=== PATIENT | female | born 1955 | race Caucasian/White ===

== ENCOUNTER 2018-08-26 14:29 | Emergency (ER) | payer SELFPAY ==
--- NOTE | 2018-08-26 16:50 | RAD REPORT ---
EXAM DESCRIPTION: RAD - Knee Right 3 View - 08/26/2018 4:21 pm CLINICAL HISTORY: Trip and fall, bilateral knee and wrist pain COMPARISON: None. FINDINGS: No fracture, dislocation or periosteal reaction.No joint effusion seen. No joint space denise rowing. Mild spurring changes are present along the tibial spine. No foreign body or other soft tissue suspicious finding. IMPRESSION: Negative right knee. Clinical concerns for internal derangement or occult bony injury could be further assessed with MR im aging.
--- NOTE | 2018-08-26 16:50 | RAD REPORT ---
EXAM DESCRIPTION: RAD - Knee Left 3 View - 08/26/2018 4:21 pm CLINICAL HISTORY: Trip and fall, bilateral knee and wrist pain COMPARISON: None. FINDINGS: No fracture, dislocation or periosteal reaction.No joint effusion seen. No joint space denise rowing. Minimal marginal spurring changes present. No soft tissue abnormality identified. No foreign body. IMPRESSION: Negative left knee. Clinical concerns for internal derangement or occult bony injury could be further assessed with MR im aging.
--- NOTE | 2018-08-26 16:53 | RAD REPORT ---
EXAM DESCRIPTION: RAD - Wrist Right 3 View - 08/26/2018 4:21 pm CLINICAL HISTORY: Trip and fall, bilateral knee and wrist pain COMPARISON: None. FINDINGS: No fracture is identified. There is no dislocation or periosteal reaction noted. Patient h as advanced degenerative change at the trapezium first metacarpal articulation. Joint space is narrow ed with sclerosis and prominent spurring. There is some deformity along the articular surface of the trapezium. Scaphoid trapezial and degenerative changes minimal. No foreign body or other soft tissue abnormality. IMPRESSION: No fracture or acute finding seen in the right wrist. Advanced degenerative change at the trapezium first metacarpal articulation.
--- NOTE | 2018-08-26 16:54 | RAD REPORT ---
EXAM DESCRIPTION: RAD - Wrist Left 3 View - 08/26/2018 4:23 pm CLINICAL HISTORY: Trip and fall, bilateral knee and wrist pain COMPARISON: None. FINDINGS: No fracture is identified. There is no dislocation or periosteal reaction noted. Patient h as very advanced degenerative change at the trapezium first metacarpal articulation. There is joint s pace narrowing, sclerosis and prominent bony hypertrophy and spurring. There is partial subluxation o f the metacarpal. A mild to moderate degenerative change involves the scaphoid articulation with the trapezium and trapezoid bones. No foreign body or suspicious soft tissue finding. IMPRESSION: No left wrist fracture or acute finding. Advanced degenerative change at the trapezium first metacarpal articulation.
--- NOTE | 2018-08-26 17:35 | RAD REPORT ---
EXAM DESCRIPTION: CT - Head C Spine Cap Wo Con - 08/26/2018 5:23 pm CLINICAL HISTORY: Fall, head, neck, chest and abdomen pain COMPARISON: None. TECHNIQUE: Axial [address] head images were obtained. Axial [address] cervical spine images were obtain ed with sagittal and coronal reconstruction images reviewed. Axial 5 mm images of the chest, abdomen and pelvis were obtained. All CT scans are performed using dose optimization technique as appropriate and may include automated exposure control or mA/KV adjustment according to patient size. FINDINGS: No intracranial hemorrhage, mass or edema. No midline shift. Mild atrophy and chronic isch emic changes are present. Ventricles are in proportion to any volume loss. The patient has an approxi mately 4 centimeter CSF collection in the midline and left-side posterior fossa. This is probably a n onacute arachnoid cyst rather than asymmetric stephen cisterna magna Mastoid air cells and paranasal sin uses are clear. No skull fracture. Cervical bodies are normal in height and alignment. No fracture or acute bone finding.C5-6 disc space narrowing seen with associated bony foraminal encroachment. Multilevel mild facet joint degenerative change present.No prevertebral soft tissue thickening or paraspinal mass.Central canal detail is inh erently limited on CT imaging. CT chest shows no pneumothorax, pulmonary contusion or pleural fluid collection. No mediastinal hem atoma and the aorta and pulmonary arteries are unremarkable. No chest will mass or abnormal axillary finding. No displaced rib fracture or other significant bony finding. CT abdomen and pelvis show no injury to solid abdominal viscera. Gallbladder and biliary tree are unr emarkable. No bowel injury or significant finding. No free air, free fluid or abnormal stranding. No hernia, mass or bulky lymphadenopathy. No urinary bladder abnormality. No significant bony finding. No acute compression fractures in the spine. There is degenerative disc disease throughout the lower thoracic spine as well as the L4-5 and L5-S1 levels. There is anterior s ubluxation of L4 secondary to advanced facet joint degenerative change. IMPRESSION: No hemorrhage or acute CT Head finding. Cervical spine degenerative change as detailed. No acute finding. No acute CT chest finding. No acute CT abdomen and pelvis finding. Nonacute findings detailed in the body of the report.
--- NOTE | 2018-08-26 17:59 | ER ---
Nurse's Notes [facility] Name: Miya Winchester Age: 63 yrs Sex: Female : 1955 Arrival Date: 08/26/2018 Time: 14:32 Bed 12 Private MD: Diagnosis: Other slipping, tripping and stumbling and falls;Pain in unspecified wrist-Bilateral from fall;Pain in unspecified hand-Bilateral from fall;Pain in knee-Bilateral from fall;Neck and back pain from fall Presentation: 08/26 14:38 Presenting complaint: Patient states: was at [employer] shopping and stepped on something hj and fell and hurt both knees, both wrist, denies hitting head and LOC;. Transition of care: patient was not received from another setting of care. Onset of symptoms was August 26, 2018. Risk Assessment: Do you want to hurt yourself or someone else? Patient reports no desire to harm self or others. Initial Sepsis Screen: Does the patient meet any 2 criteria? No. Patient's initial sepsis screen is negative. Does the patient have a suspected source of infection? No. Patient's initial sepsis screen is negative. Care prior to arrival: None. 14:38 Method Of Arrival: Ambulatory 14:38 Acuity: SERGE 4 14:41 Mechanism of Injury: Fall. Trauma event details: Injury occurred in the county [facility], Injury occurred: at home. Injury occurred: August 26, 2018. Triage Assessment: 14:40 General: Appears in no apparent distress. uncomfortable, Behavior is calm, cooperative, hj appropriate for age. Pain: Complains of pain in knee, wrists. Historical: - Allergies: 14:40 Codeine; - Home Meds: 14:40 tramadol 50 mg Oral tab 1 tab every 4 hours [Active]; - PMHx: 14:40 Degenerative disc disease; - PSHx: 14:40 ; oophorectomy; Appendectomy; - Immunization history:: Adult Immunizations up to date. - Social history:: Smoking status: Patient/guardian denies using tobacco, Patient/guardian denies using alcohol. - Ebola Screening: : Patient negative for fever greater than or equal to 101.5 degrees Fahrenheit, and additional compatible Ebola Virus Disease symptoms Patient denies exposure to infectious person Patient denies travel to an Ebola-affected area in the 21 days before illness onset. Screenin:41 Abuse screen: Denies threats or abuse. Denies injuries from another. Nutritional hj screening: No deficits noted. Tuberculosis screening: No symptoms or risk factors identified. Fall Risk Fall in past 12 months (25 points). Primary Survey: 14:43 NO uncontrolled hemorrhage observed. A: Airway: patent, No supplemental oxygen in use hj on arrival. Oral cavity: clear, gag reflex present, Trachea midline. Breathing/Chest: Respiratory pattern: regular, Respiratory effort: spontaneous, unlabored, Breath sounds: clear, Chest inspection: symmetrical rise and fall of the chest. Circulation: Cardiac rhythm: Heart tones present. Pulses: palpable right radial artery and left radial artery. Skin color: Skin temperature: warm, dry. Disability Alert. Assessment: 17:30 General: Appears in no apparent distress. comfortable, Behavior is calm, cooperative. iw Pain: Complains of pain in back, right arm, left arm and neck. Neuro: Level of Consciousness is awake, alert, obeys commands, Moves all extremities. Cardiovascular: Patient's skin is warm and dry. Respiratory: Respiratory effort is even, unlabored. Derm: Skin is intact, is healthy with good turgor. Musculoskeletal: Range of motion: intact in all extremities. Vital Signs: 14:41 BP 132 / 77; Pulse 84; Resp 18; Temp 99.5(O); Pulse Ox 99% on R/A; Weight 65.32 kg; hj Height 5 ft. 9 in. (175.26 cm); Pain 9/10; 14:41 Body Mass Index 21.27 (65.32 kg, 175.26 cm) ED Course: 14:32 Patient arrived in ED. mr 14:39 Triage completed. hj 14:41 Arm band placed on right wrist. hj 15:26 Davie Arroyo PA is PHCP. cp 15:26 Jeff Childs MD is Attending Physician. cp 15:54 Zeynep Gomez, FLORINDA is Primary Nurse. iw 16:21 XRAY Knee RIGHT 3 view In Process Unspecified. EDMS 16:21 XRAY Knee LEFT 3 view In Process Unspecified. EDMS 16:21 XRAY Wrist LEFT 3 view In Process Unspecified. EDMS 16:21 XRAY Wrist RIGHT 3 view In Process Unspecified. EDMS 17:[address] jg6 17:20 CT completed. Patient tolerated procedure well. Patient moved back from CT. nj 17:24 CT Traumagram (Head C Spine CAP wo con) In Process Unspecified. EDMS 17:30 Patient has correct armband on for positive identification. iw 18:20 No provider procedures requiring assistance completed. Patient did not have IV access iw during this emergency room visit. Administered Medications: 17:14 Not Given (Patient Refused): Ibuprofen 800 mg PO once iw Outcome: 17:58 Discharge ordered by MD. cp 18:20 Discharged to home ambulatory. iw 18:20 Condition: good 18:20 Discharge instructions given to patient, Instructed on discharge instructions, follow up and referral plans. medication usage, Demonstrated understanding of instructions, follow-up care, medications, Prescriptions given X 3. 18:21 Patient left the ED. iw Signatures: Dispatcher [employer] EDDC Vesna Mcintosh Zeynep Gomez, RN RN Darrel Saleh RN RN hj Page, Corey, PA PA cp Jordan, Nathan nj Garcia, Kaur jg6 Corrections: (The following items were deleted from the chart) 14:44 14:41 Pulse 84bpm; Resp 18bpm; Pulse Ox 99% RA; Temp 99.5F Oral; 65.32 kg; Height 5 ft. hj 9 in.; BMI: 21.2; Pain 9/10; hj
--- NOTE | 2018-08-26 17:59 | EDPHYS ---
Physician Documentation [facility] Name: Miya Winchester Age: 63 yrs Sex: Female : 1955 Arrival Date: 08/26/2018 Time: 14:32 Bed 12 Private MD: ED Physician Jeff Childs HPI: 08/26 15:46 This 63 yrs old Female presents to ER via Ambulatory with complaints of Fall cp Injury. 15:46 Details of fall: The patient fell from an upright position, while walking. Onset: The cp symptoms/episode began/occurred today. Associated injuries: The patient sustained bilateral wrist and bilateral proximal hand and bilateral knee. 15:46 Patient reports she was at [employer] shopping when she slipped on object on floor. Patient cp reports she fell forward onto outstretched hands and knees. Patient denies hitting head, denies LOC. Patient reports she was able to walk to car after fall. Historical: - Allergies: 14:40 Codeine; hj - Home Meds: 14:40 tramadol 50 mg Oral tab 1 tab every 4 hours [Active]; hj - PMHx: 14:40 Degenerative disc disease; hj - PSHx: 14:40 ; oophorectomy; Appendectomy; hj - Immunization history:: Adult Immunizations up to date. - Social history:: Smoking status: Patient/guardian denies using tobacco, Patient/guardian denies using alcohol. - Ebola Screening: : Patient negative for fever greater than or equal to 101.5 degrees Fahrenheit, and additional compatible Ebola Virus Disease symptoms Patient denies exposure to infectious person Patient denies travel to an Ebola-affected area in the 21 days before illness onset. ROS: 16:00 Constitutional: Negative for body aches, chills, fever, poor PO intake. cp 16:00 Eyes: Negative for injury, pain, redness, and discharge. cp 16:00 ENT: Negative for drainage from ear(s), ear pain, sore throat, difficulty swallowing, difficulty handling secretions. 16:00 Neck: Positive for pain with movement, tenderness, Negative for stiffness, swollen nodes. 16:00 Cardiovascular: Negative for chest pain, edema, palpitations. 16:00 Respiratory: Negative for cough, shortness of breath, wheezing. 16:00 Abdomen/GI: Negative for abdominal pain, nausea, vomiting, and diarrhea, constipation, anorexia, black/tarry stool, rectal bleeding. 16:00 Back: Positive for pain at rest, pain with movement, Negative for decreased range of motion. 16:00 : Negative for urinary symptoms, difficulty urinating, bladder incontinence. 16:00 MS/extremity: Positive for pain, tenderness, of the proximal bilateral hand and bilateral wrist and bilateral knee, Negative for decreased range of motion, paresthesias. 16:00 Skin: Negative for cellulitis, rash. 16:00 Neuro: Negative for altered mental status, headache, loss of consciousness, syncope, weakness. 16:00 All other systems are negative. Exam: 16:15 Constitutional: The patient appears in no acute distress, alert, awake, cp non-diaphoretic, non-toxic, well developed, well nourished. 16:15 Head/Face: Normocephalic, atraumatic. cp 16:15 Eyes: Periorbital structures: appear normal, Conjunctiva: normal, no exudate, no injection, Sclera: no appreciated abnormality, Lids and lashes: appear normal, bilaterally. 16:15 ENT: External ear(s): are unremarkable, Nose: is normal, Mouth: Lips: moist, Oral mucosa: moist, Posterior pharynx: is normal, airway is patent, no erythema, no exudate, Voice: is normal. 16:15 Neck: C-spine: C-collar placed in ED, vertebral tenderness, that is mild, crepitus, is not appreciated, ROM/movement: pain, that is mild, with flexion, limited range of motion, is not appreciated, nuchal rigidity, is not appreciated. 16:15 Chest/axilla: Inspection: normal, Palpation: is normal, no crepitus, no tenderness. 16:15 Cardiovascular: Rate: normal, Rhythm: regular. 16:15 Respiratory: the patient does not display signs of respiratory distress, Respirations: normal, no use of accessory muscles, no retractions, no splinting, no tachypnea, labored breathing, is not present, Breath sounds: are clear throughout, no decreased breath sounds, no stridor, no wheezing. 16:15 Abdomen/GI: Inspection: abdomen appears normal, Palpation: abdomen is soft and non-tender, in all quadrants. 16:15 Back: pain, that is mild, of the low back area, vertebral tenderness. 16:15 Musculoskeletal/extremity: Extremities: grossly normal except: noted in the proximal right hand and proximal left hand: tenderness, There is no evidence of decreased ROM, deformity, noted in the right wrist and left wrist: tenderness, no evidence of decreased ROM, deformity, swelling, noted in the right knee and left knee: pain, tenderness, no evidence of decreased ROM, deformity, ROM: intact in all extremities, full active range of motion, in all extremities, Circulation is intact in all extremities. Sensation intact. Weight bearing: able to fully bear weight, bilateral knee. 16:15 Skin: cellulitis, is not appreciated, no rash present. 16:15 Neuro: Orientation: to person, place \T\ time. Mentation: is normal, Cerebellar function: is grossly normal, Motor: moves all fours, strength is normal, Sensation: is normal, Gait: is steady. Vital Signs: 14:41 BP 132 / 77; Pulse 84; Resp 18; Temp 99.5(O); Pulse Ox 99% on R/A; Weight 65.32 kg; hj Height 5 ft. 9 in. (175.26 cm); Pain 9/10; 14:41 Body Mass Index 21.27 (65.32 kg, 175.26 cm) hj MDM: 15:26 Patient medically screened. cp 16:00 Differential diagnosis: abrasion, closed head injury, contusion, fracture, multiple cp trauma. 17:55 Data reviewed: vital signs, nurses notes, radiologic studies, CT scan, plain films. cp 17:55 Test interpretation: by ED physician or midlevel provider: plain radiologic studies. cp Counseling: I had a detailed discussion with the patient and/or guardian regarding: the historical points, exam findings, and any diagnostic results supporting the discharge/admit diagnosis, radiology results, the need for outpatient follow up, a family practitioner, to return to the emergency department if symptoms worsen or persist or if there are any questions or concerns that arise at home. Response to treatment: the patient's symptoms have mildly improved after treatment. ED course: VSS. Radiology studies negative for acute trauma. Will discharge to home for continued monitoring. 08/26 15:46 Order name: XRAY Knee RIGHT 3 view; Complete Time: 17:44 cp 08/26 15:46 Order name: XRAY Knee LEFT 3 view; Complete Time: 17:44 cp 08/26 15:46 Order name: XRAY Wrist LEFT 3 view; Complete Time: 17:44 cp 08/26 15:46 Order name: XRAY Wrist RIGHT 3 view; Complete Time: 17:44 cp 08/26 17:05 Order name: CT Traumagram (Head C Spine CAP wo con); Complete Time: 17:44 cp 08/26 17:05 Order name: C-Collar; Complete Time: 17:14 cp Administered Medications: 17:14 Not Given (Patient Refused): Ibuprofen 800 mg PO once iw Disposition: 08/27 09:36 Co-signature as Attending Physician, Jeff Childs MD I agree with the assessment and kdr plan of care. Disposition: 08/26/18 17:58 Discharged to Home. Impression: Other slipping, tripping and stumbling and falls, Pain in unspecified wrist - Bilateral from fall, Pain in unspecified hand - Bilateral from fall, Pain in knee - Bilateral from fall, Neck and back pain from fall. - Condition is Stable. - Discharge Instructions: Joint Pain, Back Pain, Adult, Musculoskeletal Pain, Wrist Pain, Wrist Splint, Back Exercises, [id number], Hand Exercises. - Prescriptions for Anaprox DS 550 mg Oral Tablet - take 1 tablet by ORAL route every 12 hours As needed; 20 tablet. Cyclobenzaprine 10 mg Oral Tablet - take 1 tablet by ORAL route every 8 hours As needed no driving while taking medication; 20 tablet. Tramadol 50 mg Oral Tablet - take 1 tablet by ORAL route every 8 hours as needed. no driving while taking medication; 20 tablet. - Medication Reconciliation Form, Thank You Letter, Antibiotic Education, Prescription Opioid Use form. - Follow up: Private Physician; When: 2 - 3 days; Reason: Recheck today's complaints. - Problem is new. - Symptoms have improved. Signatures: Dispatcher [employer] EDMS Jeff Childs MD MD [facility] Zeynep Gomez RN RN iw Joaquin, Henry, RN RN hj Page, Corey, PA PA cp Corrections: (The following items were deleted from the chart) 08/26 18:21 17:05 Splint - Wrist ordered. cp iw 18:21 17:58 08/26/2018 17:58 Discharged to Home. Impression: Other slipping, tripping and iw stumbling and falls; Pain in unspecified wrist - Bilateral from fall; Pain in unspecified hand - Bilateral from fall; Pain in knee - Bilateral from fall; Neck and back pain from fall. Condition is Stable. Forms are Medication Reconciliation Form, Thank You Letter, Antibiotic Education, Prescription Opioid Use. Follow up: Private Physician; When: 2 - 3 days; Reason: Recheck today's complaints. Problem is new. Symptoms have improved. cp
[2018-08-26 19:03] VITALS: BP 132/77; TEMP 99.5; O2SAT 99
== END 2018-08-26 18:21 | disposition home or self-care (01) ==
LOC: ER 14:29
DX: M25.532 Pain in left wrist (principal); M25.531 Pain in right wrist; M79.642 Pain in left hand; M79.641 Pain in right hand; M25.562 Pain in left knee; M25.561 Pain in right knee; M54.9 Dorsalgia, unspecified; W01.0XXA Fall on same level from slipping, tripping and stumbling without subsequent striking against object, initial encounter; Y93.01 Activity, walking, marching and hiking; Y92.9 Unspecified place or not applicable; Z88.5 Allergy status to narcotic agent
CPT/HCPCS: 70450; 71250; 72125

== ENCOUNTER 2024-06-29 18:04 | Emergency (ER) | payer OTHER, SELFPAY ==
--- OUTSIDE RECORDS SUMMARY | 2024-06-29 18:07 | XMS REPORT | Continuity of Care Document ---
Author Name Unknown Address [address] [facility] [address] [place] [address] [facility] Address [address] [facility] [address] [place] [address] Care Team Providers Care Cloud Software Engineer Name Role Phone PCP, PATIENT DOES NOT HAVE A Primary Care Physic camila Unavailable TRACEY BRAVO Attending Clinician Unavailable [email or web address]_Solo_S Attending Clinician UnavailTRACEY Saenz Attending Clinician Unavail able RADIOLOGY Attending Clinician Unavailable Radiology Attending Clinician Unavailable Rose NEELY, Marcela Snyder Attending Clinician UnavailKaur Presley Attending Clinician Unavailable Doctor Unassigned, Pearson Attending Clinician U yareli Nurse, Yomi [facility] Attending Clinician Unavailable [email or web address]_Kahernana_S Admitting Clinician TRACEY Henderson Admitting Clinician Unavailable Payers Payer Name Policy Type Policy Number Effective Date Expirati on Date Source [employer] MEDICARE ADVANTAGE [id number] 2022 00:00:00 Allergies, Adverse Reactions, Alerts Allergy Name Allergy Type Status Severity Reaction(s) Onset Date Inactive Date Treating Clinician Comments Source Pineda Mann ty to adverse reaction to drug Active 03-17 00:00: 00 NO KNOWN ALLERGIE S Drug Class Active [facility] Social History Social Habit Start Date Stop Date Quantity Comments Source Gender identity [facility] At 1955 00:00:00 1955 00:00:00 [facility] Smoking Status Start Date Stop Date Source Tobacco smoking consumption unknown [facility] Medications Ordered Medication Name Filled Medication Name Start Date Stop Date Current Medication? Ordering Clinician Indication Dosage Frequency Signature (SIG) Comments Components Source iopamidol (ISOVUE 370-500 mL) injection 100 mL 04-02 21:45: 00 04-02 20:58 :00 No [id number] 100mL 100 mL, Intravenou s, ONCE, 1 dose, On Fri04/02/23 at 1645, Routine [facility] Dose Unknown 04-26 00:00: 00 No Dose Unknown 04-26 00:00: 00 No Dose Unknown 04-26 00:00: 00 No Dose Unknown 04-26 00:00: 00 No Cipro 250 mg tablet 2018-09 00:00: 00 No 1mg Cipro 250 mg tablet 2018-09 00:00: 00 No 1mg phenazopyri dine 200 mg tablet 2018-09 00:00: 00 No 1mg phenazopyri dine 200 mg tablet 2018-09 00:00: 00 No 1mg metronidazo le 500 mg tablet 09-05 00:00: 00 No 1mg naproxen sodium 550 mg tablet 09-05 00:00: 00 No 1mg metronidazo le 500 mg tablet 09-05 00:00: 00 No 1mg naproxen sodium 550 mg tablet 09-05 00:00: 00 No 1mg ranitidine 150 mg tablet 04-08 00:00: 00 No 1mg ranitidine 150 mg tablet 04-08 00:00: 00 No 1mg Calcium 500 500 mg calcium (1,250 mg) tablet 03-17 00:00: 00 No 1(1,250 mg) Vitamin C 1,000 mg tablet 03-17 00:00: 00 No 1mg hydrocodone 5 mg-acetamin ophen 325 mg tablet 03-17 00:00: 00 No 1mg tramadol 50 mg tablet 03-17 00:00: 00 No 1mg cyclobenzap rine 5 mg tablet 03-17 00:00: 00 No 1mg cyclobenzap rine 5 mg tablet 03-17 00:00: 00 No 1mg Calcium 500 500 mg calcium (1,250 mg) tablet 03-17 00:00: 00 No 1(1,250 mg) Vitamin C 1,000 mg tablet 03-17 00:00: 00 No 1mg hydrocodone 5 mg-acetamin ophen 325 mg tablet 03-17 00:00: 00 No 1mg tramadol 50 mg tablet 03-17 00:00: 00 No 1mg cyclobenzap rine 5 mg tablet 03-17 00:00: 00 No 1mg cyclobenzap rine 5 mg tablet 03-17 00:00: 00 No 1mg Vital Signs Vital Name Observation Time Observation Value Comments S ource Systolic blood pressure 2023-06-26 19:06:10 145 mm[Hg] [facility] Diastolic blood pressure 2023-06-26 19:06:10 99 mm[Hg] [facility] Heart rate 2023-06-26 19:06:10 73 /min [facility] Respiratory rate 2023-06-26 19:06:10 20 /min [facility] Oxygen saturation in Arterial blood by Pulse oximetry 2023-06-26 19:06:10 100 /min [facility] Body temperature 2023-06-26 17:28:00 36.67 Fanny [facility] BP Systolic 2022-07-18 14:19:00 132 mm[Hg] BP Diastolic 2022-07-18 14:19:00 79 mm[Hg] Weight Measured 2022-07-18 14:19:00 154.00 pounds Height Measured 2022-07-18 14:19:00 67.64 inches Body Temperature 2022-07-18 14:19:00 98.20 degrees Heart Rate 2022-07-18 14:19:00 89.00 /min Respiratory Rate 2022-07-18 14:19:00 18.00 /min BP Systolic 2022-04-26 14:03:00 147 mm[Hg] BP Diastolic 2022-04-26 14:03:00 92 mm[Hg] Weight Measured 2022-04-26 14:03:00 151.20 pounds Height Measured 2022-04-26 14:03:00 67.64 inches Body Temperature 2022-04-26 14:03:00 98.80 degrees Heart Rate 2022-04-26 14:03:00 87.00 /min Respiratory Rate 2022-04-26 14:03:00 16.00 /min BP Systolic 2020-10-31 14:46:00 160 mm[Hg] BP Diastolic 2020-10-31 14:46:00 97 mm[Hg] Weight Measured 2020-10-31 14:46:00 155.40 pounds Height Measured 2020-10-31 14:46:00 67.64 inches Body Temperature 2020-10-31 14:46:00 98.80 degrees Heart Rate 2020-10-31 14:46:00 91.00 /min Respiratory Rate 2020-10-31 14:46:00 17.00 /min BP Systolic 2020-06-01 17:24:00 131 mm[Hg] BP Diastolic 2020-06-01 17:24:00 77 mm[Hg] Weight Measured 2020-06-01 17:24:00 163.20 pounds Height Measured 2020-06-01 17:24:00 67.64 inches Body Temperature 2020-06-01 17:24:00 98.10 degrees Heart Rate 2020-06-01 17:24:00 84.00 /min Respiratory Rate 2020-06-01 17:24:00 16.00 /min BP Systolic 2020-01-17 14:59:00 129 mm[Hg] BP Diastolic 2020-01-17 14:59:00 79 mm[Hg] Weight Measured 2020-01-17 14:59:00 154.60 pounds Height Measured 2020-01-17 14:59:00 67.64 inches Body Temperature 2020-01-17 14:59:00 98.80 degrees Heart Rate 2020-01-17 14:59:00 90.00 /min Respiratory Rate 2020-01-17 14:59:00 17.00 /min BP Systolic 2019-10-09 15:09:00 130 mm[Hg] BP Diastolic 2019-10-09 15:09:00 87 mm[Hg] Weight Measured 2019-10-09 15:09:00 152.80 pounds Height Measured 2019-10-09 15:09:00 67.64 inches Body Temperature 2019-10-09 15:09:00 99.80 degrees Heart Rate 2019-10-09 15:09:00 84.00 /min Respiratory Rate 2019-10-09 15:09:00 BP Systolic 2019-07-28 13:35:00 125 mm[Hg] BP Diastolic 2019-07-28 13:35:00 85 mm[Hg] Weight Measured 2019-07-28 13:35:00 150.40 pounds Height Measured 2019-07-28 13:35:00 67.64 inches Body Temperature 2019-07-28 13:35:00 98.40 degrees Heart Rate 2019-07-28 13:35:00 84.00 /min Respiratory Rate 2019-07-28 13:35:00 16.00 /min BP Systolic 2019-07-16 15:58:00 130 mm[Hg] BP Diastolic 2019-07-16 15:58:00 79 mm[Hg] Weight Measured 2019-07-16 15:58:00 146.20 pounds Height Measured 2019-07-16 15:58:00 67.64 inches Body Temperature 2019-07-16 15:58:00 99.10 degrees Heart Rate 2019-07-16 15:58:00 102.00 /min Respiratory Rate 2019-07-16 15:58:00 17.00 /min BP Systolic 2019-06-09 14:01:00 126 mm[Hg] BP Diastolic 2019-06-09 14:01:00 82 mm[Hg] Weight Measured 2019-06-09 14:01:00 146.00 pounds Height Measured 2019-06-09 14:01:00 67.64 inches Body Temperature 2019-06-09 14:01:00 98.50 degrees Heart Rate 2019-06-09 14:01:00 100.00 /min Respiratory Rate 2019-06-09 14:01:00 17.00 /min BP Systolic 2019-06-05 14:18:00 121 mm[Hg] BP Diastolic 2019-06-05 14:18:00 77 mm[Hg] Weight Measured 2019-06-05 14:18:00 149.20 pounds Height Measured 2019-06-05 14:18:00 67.64 inches Body Temperature 2019-06-05 14:18:00 99.00 degrees Heart Rate 2019-06-05 14:18:00 86.00 /min Respiratory Rate 2019-06-05 14:18:00 16.00 /min BP Systolic 2019-04-28 15:14:00 136 mm[Hg] BP Diastolic 2019-04-28 15:14:00 87 mm[Hg] Weight Measured 2019-04-28 15:14:00 153.10 pounds Height Measured 2019-04-28 15:14:00 67.64 inches Body Temperature 2019-04-28 15:14:00 97.80 degrees Heart Rate 2019-04-28 15:14:00 87.00 /min Respiratory Rate 2019-04-28 15:14:00 16.00 /min Procedures Procedure Date / Time Performed Performing Clinician Source IR BIOPSY THYROID PERCUTANEOUS WITH ULTRASOUND 2023-06-26 19:10:00 Oziel Arnett [facility] CT SOFT TISSUE NECK W CONTRAST 2023-04-02 20:53:00 Requisition, Paper [facility] HB CREATININE SERUM/BLOOD FOR IMAGING 2023-04-02 20:36:00 Radiology [facility] CONSENT/REFUSAL FOR DIAGNOSIS AND TREATMENT 2023-04-02 20:12:18 Doctor Unassigned, Pearson [facility] US ABDOMEN LIMITED 2022-12-20 20:29:00 Requisition, Pa per [facility] NON-UTMB ORDERS 2022-12-09 05:01:00 Doctor Unass igned, Pearson [facility] Ear Lavage 2019-04-28 00:00:00 Plan of Care Planned Activity Planned Date Details Comments Source Goal Plan of Care Note [code = 83789-4] Goal Plan of Care Note [code = 78784-1] Goal Plan of Care Note [code = 26072-2] Goal Plan of Care Note [code = 45431-8] Goal Plan of Care Note [code = 62611-9] Goal Plan of Care Note [code = 71231-3] Goal Plan of Care Note [code = 83489-5] Goal Plan of Care Note [code = 88300-2] Goal Plan of Care Note [code = 81402-8] Goal Plan of Care Note [code = 42791-1] Goal Plan of Care Note [code = 10515-6] Goal Plan of Care Note [code = 60509-5] Goal Plan of Care Note [code = 44729-1] Goal Plan of Care Note [code = 08980-6] Goal Plan of Care Note [code = 12633-4] Goal Plan of Care Note [code = 07595-6] Goal Plan of Care Note [code = 07474-9] Goal Plan of Care Note [code = 07730-7] Goal Plan of Care Note [code = 02104-0] Goal Plan of Care Note [code = 33663-9] Goal Plan of Care Note [code = 66399-5] Goal Plan of Care Note [code = 24634-5] Goal Plan of Care Note [code = 82154-2] Goal Plan of Care Note [code = 63834-0] Goal Plan of Care Note [code = 59068-6] Goal Plan of Care Note [code = 04820-8] Goal Plan of Care Note [code = 12742-0] Goal Plan of Care Note [code = 24450-5] Goal Plan of Care Note [code = 06824-3] Goal Plan of Care Note [code = 45479-4] Goal Plan of Care Note [code = 49343-7] Goal Plan of Care Note [code = 02155-2] Goal Plan of Care Note [code = 37725-7] Goal Plan of Care Note [code = 00992-8] Goal Plan of Care Note [code = 81436-1] Goal Plan of Care Note [code = 69207-4] Goal Plan of Care Note [code = 09645-7] Goal Plan of Care Note [code = 88530-7] Goal Plan of Care Note [code = 25520-3] Goal Plan of Care Note [code = 63578-9] Goal Plan of Care Note [code = 40757-1] Goal Plan of Care Note [code = 89287-7] Goal Plan of Care Note [code = 46191-4] Goal Plan of Care Note [code = 72808-5] Goal Plan of Care Note [code = 04683-7] Goal Plan of Care Note [code = 31228-3] Goal Plan of Care Note [code = 15552-2] Goal Plan of Care Note [code = 25982-1] Goal Plan of Care Note [code = 95416-1] Goal Plan of Care Note [code = 10830-0] Goal Plan of Care Note [code = 51546-3] Goal Plan of Care Note [code = 47240-5] Goal Plan of Care Note [code = 05646-8] Goal Plan of Care Note [code = 82993-5] Goal Plan of Care Note [code = 46311-2] Goal Plan of Care Note [code = 51428-4] Goal Plan of Care Note [code = 35916-3] Goal Plan of Care Note [code = 78098-3] Goal Plan of Care Note [code = 69608-7] Goal Plan of Care Note [code = 55404-6] Goal Plan of Care Note [code = 39591-2] Goal Plan of Care Note [code = 96455-9] Goal Plan of Care Note [code = 90703-0] Goal Plan of Care Note [code = 61379-8] Goal Plan of Care Note [code = 59523-8] Goal Plan of Care Note [code = 32310-1] Goal Plan of Care Note [code = 21619-6] Goal Plan of Care Note [code = 60733-8] Goal Plan of Care Note [code = 04257-7] Goal Plan of Care Note [code = 71650-6] Goal Plan of Care Note [code = 83961-0] Goal Plan of Care Note [code = 09835-5] Goal Plan of Care Note [code = 36982-1] Goal Plan of Care Note [code = 09144-7] Goal Plan of Care Note [code = 33587-5] Goal Plan of Care Note [code = 10866-6] Goal Plan of Care Note [code = 42123-4] Goal Plan of Care Note [code = 17702-0] Goal Plan of Care Note [code = 10737-3] Goal Plan of Care Note [code = 48066-2] Goal Plan of Care Note [code = 82452-7] Goal Plan of Care Note [code = 19918-6] Goal Plan of Care Note [code = 95581-8] Goal Plan of Care Note [code = 09294-3] Goal Plan of Care Note [code = 84188-8] Goal Plan of Care Note [code = 54105-4] Encounters Start Date/Time End Date/Time Encounter Type Admission Type Attending Clinicians Care Facility Care Department Encounter ID Source 2023-11-03 13:55:57 2023-11-03 13:55:57 Outpatient SFA [facility] [id number] 2023-08-12 00:00:00 2023-08-12 00:00:00 Outpatient TRACEY BRAVO [facility] [id number] [address] [place] [address] 2023-07-31 00:00:00 2023-07-31 00:00:00 Outpatient [facility] [id number] [facility] 2023-07-01 00:00:00 2023-07-01 00:00:00 Outpatient GC_GCBZW_Ka diyala_S [facility] [id number] [facility] 2023-06-30 06:08:00 2023-06-30 11:53:00 Outpatient TRACEY RBAVO [facility] [id number] [facility] 2023-06-26 11:08:12 2023-06-26 23:59:00 Outpatient R RADIOLOGY [facility] [id number] [facility] 2023-06-26 11:00:00 2023-06-26 23:59:00 Hospital Encounter Radiology Marcela Rose Jessica C [facility] 1.2.840.114 350.1.13.10 4.2.7.2.686 [id number] [facility] 2023-06-24 14:40:56 2023-06-24 14:40:56 Outpatient [facility] [id number] 2023-06-20 14:02:40 2023-06-20 14:02:40 Outpatient SFA [facility] [id number] 2023-05-08 15:08:22 2023-05-08 23:59:00 Outpatient R RADIOLOGY [facility] [id number] [facility] 2023-05-08 15:08:22 2023-05-08 23:59:00 Hospital Encounter Radiology [facility] 1.2.840.114 350.1.13.10 4.2.7.2.686 [id number] [facility] 2023-05-03 14:50:26 2023-05-03 14:50:26 Outpatient [place] [id number] Rodrigue Padilla 2023-04-17 15:03:16 2023-04-17 15:03:16 Outpatient [place] [id number] Rodrigue Padilla 2023-04-03 16:12:38 2023-04-03 16:12:38 Outpatient [place] [id number]illa 2023-04-02 15:16:43 2023-04-02 23:59:00 Outpatient R RADIOLOGY [facility] [id number] [facility] 2023-04-02 15:16:43 2023-04-02 23:59:00 Hospital Encounter Radiology [facility] 1.2.840.114 350.1.13.10 4.2.7.2.686 [id number] [facility] 2023-04-02 00:00:00 2023-04-02 00:00:00 Orders Only Doctor Unassigned, Pearson [facility] 1.2.840.114 350.1.13.10 4.2.7.2.686 [id number] [facility] 2023-02-17 17:13:33 2023-02-17 17:13:33 Outpatient [place] [id number] [address] Padilla 2023-01-31 14:24:08 2023-01-31 14:24:08 Outpatient [place] [id number] Rodrigue Padilla 2023-01-30 15:19:27 2023-01-30 15:19:27 Outpatient [place] [id number] Rodrigue Padilla 2022-12-20 13:25:04 2022-12-20 23:59:00 Hospital Encounter Radiology [facility] 1.2.840.114 350.1.13.10 4.2.7.2.686 [id number] [facility] 2022-12-20 13:25:04 2022-12-20 23:59:00 Outpatient R RADIOLOGY [facility] [id number] [facility] 2022-12-10 00:00:00 2022-12-10 00:00:00 Telephone Nurse, Adc Vascular Surgery [facility]ESS[facility] 1.2.840.114 350.1.13.10 4.2.7.2.686 [id number] [facility] 2022-12-09 00:00:00 2022-12-09 00:00:00 Orders Only Doctor Unassigned, Pearson [facility] 1..840.114 350.1.13.10 4.2.7.2.686 [id number] [facility] 2022-10-10 17:12:57 2022-10-10 17:12:57 Outpatient [facility] [place] [id number] [address]illa 2022-08-02 14:53:31 2022-08-02 14:53:31 Outpatient [place] [id number] [address] Padilla 2022-07-18 14:06:01 2022-07-18 14:06:01 Outpatient [place] [id number] Rodrig[address] Padilla 2022-07-18 00:00:00 2022-07-18 00:00:00 Outpatient Visit [id number] 2022-07-15 14:02:49 2022-07-15 14:02:49 Outpatient [place] [id number] [address]illa 2022-04-26 00:00:00 2022-04-26 00:00:00 Outpatient Visit [id number] Results Test Description Test Time Test Comments Results Result Co mments Source DUST IgE [id number] 16:02:49* Test Item Value Reference Range Interpretation Comme nts COCKROACH, [place]ER IgE (test code = 58158) <0.10 KU/L <0.35 COCKROACH, GRMN CLS (test co de = 77702) 0 D. FARINAE IgE (test code = 53238) <0.10 KU/L <0.35 D. FARINAE CLASS (test code = 45554) 0 D. PTERONYSSINUS IgE (test c ode = 05610) <0.10 KU/L <0.35 D. PTERONYS. CLASS (test cod e = 86384) 0 HOUSE DUST (HAINES) IgE (test code = 96170) <0.10 KU/L <0.35 DUST (HAINES) CLASS (test cod e = 43555) 0 HOUSE DUST (H-S) IgE (test c ode = 02446) <0.10 KU/L <0.35 DUST (H-S) CLASS (test code = 45937) 0 MOLD IgE [id number] 16:01:28* Test Item Value Reference Range Interpretation Comme nts A. ALTERNATA IgE (test code = 36682) <0.10 KU/L <0.35 A. ALTERNATA CLASS (test cod e = 97723) 0 A. FUMIGATUS IgE (test code = 49775) <0.10 KU/L <0.35 A. FUMIGATUS CLASS (test cod e = 17699) 0 C. HERBARUM IgE (test code = 14344) <0.10 KU/L <0.35 C. HERBARUM CLASS (test code = 27163) 0 P. CHRYSOGENUM IgE (test cod e = 61455) <0.10 KU/L <0.35 P. CHRYSOGENUM CLASS (test c ode = 57482) 0 C. LUNATA IgE (test code = 85324) <0.10 KU/L <0.35 C. LUNATA CLASS (test code = 52745) 0 CPL [id number] 14:29:32* Test Item Value Reference Range Interpretation Comme nts INTERPRETATION: (test code = 1990) (NOTE) CLASS RANGE(k u/L) INTERPRETATION 0 <0.10 Normal, no specific IgE identified 0/1 0.10-0.34 Equivocal, indeterminate significance 1 0.35-0.69 Low level specific IgE 2 0.70-3.49 Moderate level specific IgE 3 3.50-17.49 High level specific IgE 4 17.50-49.99 Very high levels 5 50.00-99.99 of specific IgE 6 >=100.00 antibodies Note: Test results reflect expanded analytic measurable range. Allergen specific IgE values of 0.10-0.34 kU/L (class 0/1) are of indeterminate significance and may require specific clinical expertise for interpretation. Other than peanut and peanut components, values in this range will not be reported with out of range flagging. Testing performed on [employer] using ImmunoCAP Specific IgE reagents. * If Antibodies are followed by an asterisk (*) they have been developed and their performance characteristics determined by [facility] ([facility]). They have not been cleared or approved by the U.S. Food and Drug Administration (FDA). The FDA has determined that such clearance or approval is not necessary. These assays are intended to be used for clinical purposes. Analyte specific reagents were used. They should not be regarded as investigational or for research. [facility] is regulated under the Clinical Laboratory Improvement Amendments of 1988 (CLIA) as qualified to perform high complexity clinical testing. UNLESS OTHERWISE INDICATED, ALL TESTING PERFORMED AT [facility] [address] [place] [address] MED ADMIN: DYLON ECHEVERRIA M.D. CLIA NUMBER [id number] [facility] [place]. [id number] CT/NG, NAAT, [id number] 06:14:16* Test Item Value Reference Range Interpretation Comme nts CHLAMYDIA, NAAT, URINE (test code = 65712) NEGATIVE NEGATIVE Testing is perfo rmed with IQuumAS Breaker0/8800 systems usingreal-time polymerase chain reaction (PCR) method. A negative result does not exclude low level infection, specimensampling error, or collection error. GONORRHEA, NAAT, URINE (test code = 21228) NEGATIVE NEGATIVE Testing is perfo rmed with Lavelle JACK 6800/8800 systems usingreal-time polymerase chain reaction (PCR) method. A negative result does not exclude low level infection, specimensampling error, or collection error. [id number] 04:42:34* Test Item Value Reference Range Interpretation Comme nts RPR RESULT (test code = 3501) NON-REACTIVE NON-REACTIVE RPR TITER (test code = 3500) NOT INDIC. TITER NOT INDIC. HIV 1/2 4TH GEN, RFLX [id number] 04:21:09* Test Item Value Reference Range Interpretation Comme nts HIV 1/2 4TH GEN, RFLX CONF (test code = 3514) NON-REACTIVE NON-REACTIVE UNLESS OTHERWISE INDICATED, ALL TESTING PERFORMED AT [facility] [address] [place] [address] [place], [place] [address] MED ADMIN: DYLON ECHEVERRIA M.D. CLIA NUMBER [id number] [place]. [id number] POCT [id number] 20:53:17* Test Item Value Reference Range Interpretation Comme nts POCT Creatinine (test code = 3564479080) 0.8 mg/dL 0.5-1.1 Lab Interpretation (test cod e = 09530-5) [facility] [id number] 03:48:23* Test Item Value Reference Range Interpretation Comme nts HEPATITIS A IgM (test code = 41517) NON-REACTIVE NON-REACTIVE HEPATITIS A TOTAL AB REFLEX TO [id number] 03:48:23* Test Item Value Reference Range Interpretation Comme nts HEPATITIS A TOTAL AB (test c ode = 2725) REACTIVE NON-REACTIVE A HEPATITIS A [id number] 03:48:23* Test Item Value Reference Range Interpretation Comme nts HEPATITIS A IgM (test code = 2728) NON-REACTIVE NON-REACTIVE UNLESS OTHERW ISE INDICATED, ALL TESTING PERFORMED AT [facility] [address] [place] [address] MED ADMIN: DYLON ECHEVERRIA M.D. CLIA NUMBER [id number] [place]. [id number] PAP TEST, THINPREP, [id number] 12:47:35* Test Item Value Reference Range Interpretation Comme nts SOURCE: (test code = 8001) Cervical SLIDES: (test code = 8011) 1 LMP: (test code = 8021) NOT GIVEN SPECIMEN ADEQUACY: (test code = 03342) (NOTE) Satisfactory for evaluation. Endocervical cells absent. Metaplastic cells indicative of transformation zone cannot be reliably distinguished from parabasal or atrophic cells. INTERPRETATION: (test code = 13506) NILM/NO EPITH. ABNORMALITY;SEE BELOW --- - NEGATIVE FOR INTRAEPITHELIAL LESION OR MALIGNANCY (NILM) ---- CUSTOMER ACCOUNT EXECUTIVE : (test code = 8101) RIKI Tidwell(ASCP ) QC TECHNOLOGIST: (test code = 8111) RIKI Wallace(ASCP) IAC LOCATION: (test code = 71237) (NOTE) Specimens proces sed and interpreted at [facility], [address] [place] [address], , CLIA: [id number] CPT: (test code = 8140) (NOTE) 11480 UNLESS OTH ERWISE INDICATED, COMPUTER AIDED AND CUSTOMER ACCOUNT EXECUTIVE SCREENING PERFORMED. The Pap test is a screening test with an inherent, but low probability of error. Your patient should be reminded to consult you immediately if she experiences any suspicious signs or symptoms, regardless of her Pap test result. An alternate report format containing images or consolidated prior Pap history is available as applicable. HPV HIGH RISK WITH GENOTYPE, [id number] 16:04:20* Test Item Value Reference Range Interpretation Comme nts HPV HIGH RISK INTERP (test code = 50125) NEGATIVE NEGATIVE HPV 16 (test code = 60767) NEGATIVE HPV 18 (test code = 33684) NEGATIVE HPV, HR, OTHER GENOTYPES (test code = 22696) NEGATIVE Testing methodol ogy is real-time PCR utilizing hydrolysis probes with the Lavelle Jack 4800 system. The test individually detects genotypes 16 and 18, as well as the other 12 high risk types (31,33,35,39,45,51,52,56 ,58,59,66,68). The expected result is negative. A negative result does not rule out the presence of HPV not included in the genotype set, a low level of infection or specimen sampling error. [facility] has important pathology staff changes effective 10/30/2022. New pathology staff will provide uninterrupted, excellent patient care and clinical consultation. See URL: [email or web address]. UNLESS OTHERWISE INDICATED, ALL TESTING PERFORMED AT [facility] [address] [place] [address] CLIA: [id number], CAP: [id number] COMPREHENSIVE METABOLIC [id number] 03:14:21* Test Item Value Reference Range Interpretation Comme nts GLUCOSE (test code = 2217) 95 MG/DL 70-99 BUN (test code = 2208) 18 MG/DL 8-23 CREATININE (test code = 2214) 0.80 MG/DL 0.60-1.30 eGFR (2020 CKD-EPI) (test code = 75863) 82 ML/MIN/1.73 >60 CALC BUN/CREAT (test code = 2235) 23 RATIO 6-28 SODIUM (test code = 2231) 146 MEQ/L 133-146 POTASSIUM (test code = 2228) 4.5 MEQ/L 3.5-5.4 CHLORIDE (test code = 2215) 104 MEQ/L 95-107 CARBON DIOXIDE (test code = 2206) 21 MEQ/L 19-31 CALCIUM (test code = 2209) 11.0 MG/DL 8.5-10.5 H PROTEIN, TOTAL (test code = 2229) 8.3 G/DL 6.1-8.3 ALBUMIN (test code = 2201) 5.1 G/DL 3.5-5.2 CALC GLOBULIN (test code = 2240) 3.2 G/DL 1.9-3.7 CALC A/G RATIO (test code = 2234) 1.6 RATIO 1.0-2.6 BILIRUBIN, TOTAL (test code = 2207) 0.4 MG/DL See_Comment [Automated me ssage] The system which generated this result transmitted reference range: <=1.2. The reference range was not used to interpret this result as normal/abnormal. ALKALINE PHOSPHATASE (test code = 2204) 71 U/L 40-140 AST (test code = 2218) 36 U/L 9-40 ALT (test code = 2219) 33 U/L 5-40 COMPREHENSIVE METABOLIC [id number] 00:00:00* Test Item Value Reference Range Interpretation Comme nts GLUCOSE (test code = 2217) 95 MG/DL BUN (test code = 2208) 18 MG/DL CREATININE (test code = 2214) 0.80 MG/DL eGFR (2020 CKD-EPI) (test co de = 38639) 82 ML/MIN/1.73 CALC BUN/CREAT (test code = 2235) 23 RATIO SODIUM (test code = 2231) 146 MEQ/L POTASSIUM (test code = 2228) 4.5 MEQ/L CHLORIDE (test code = 2215) 104 MEQ/L CARBON DIOXIDE (test code = 2206) 21 MEQ/L CALCIUM (test code = 2209) 11.0 MG/DL PROTEIN, TOTAL (test code = 2229) 8.3 G/DL ALBUMIN (test code = 2201) 5.1 G/DL CALC GLOBULIN (test code = 2240) 3.2 G/DL CALC A/G RATIO (test code = 2234) 1.6 RATIO BILIRUBIN, TOTAL (test code = 2207) 0.4 MG/DL ALKALINE PHOSPHATASE (test code = 2204) 71 U/L AST (test code = 2218) 36 U/L ALT (test code = 2219) 33 U/L [id number] 12:39:22* Test Item Value Reference Range Interpretation Comme nts D-DIMER (test code = 1405) 0.41 UG/ML FEU See_Comment NOTE: Provided r eference range is established for evaluation of Deep Venous Thrombosis/Pulmonary Embolus (DVT/PE). Results below cutoff value of <=0.49 UG/ML FEU have a high negative predictive value forDVT/PE. No reference range is established for disseminatedintra-vascul ar coagulation (DIC). UNLESS OTHERWISE INDICATED, ALL TESTING PERFORMED ATCLINICAL PATHOLOGY [facility] [address] [place] [id number] MED ADMIN: RAFAEL STAPLETON M.D. [place] NUMBER [id number] [place]. [id number] [Automated message] The system which generated this result transmitted reference range: <=0.49. The reference range was not used to interpret this result as normal/abnormal. CBC W/AUTO DIFF WITH [id number] 04:40:51* Test Item Value Reference Range Interpretation Comme nts WBC (test code = 1001) 6.6 K/UL 3.5-11.0 RBC (test code = 1002) 4.21 M/UL 3.80-5.40 HEMOGLOBIN (test code = 1003) 14.0 G/DL 11.5-15.5 HEMATOCRIT (test code = 1004) 40.2 % 34.0-45.0 MCV (test code = 1005) 95.5 fL 80.0-99.0 MCH (test code = 1006) 33.3 PG 25.0-33.0 H MCHC (test code = 1007) 34.8 G/DL 31.0-36.0 RDW (test code = 1038) 12.1 % 11.5-15.0 NEUTROPHILS (test code = 1008) 50.3 % LYMPHOCYTES (test code = 1010) 39.1 % MONOCYTES (test code = 1011) 7.9 % EOSINOPHILS (test code = 1012) 2.0 % BASOPHILS (test code = 1013) 0.5 % IMMATURE GRANULOCYTES (test code = 1036) 0.2 % NUCLEATED RBCS (test code = 1065) 0.0 /100 WBC'S See_Comment [Automated messa ge] The system which generated this result transmitted reference range: 0.0. The reference range was not used to interpret this result as normal/abnormal. PLATELET COUNT (test code = 1015) 230 K/UL 130-400 ABSOLUTE NEUTROPHILS (test code = 1066) 3.34 K/UL 1.50-7.50 ABSOLUTE LYMPHOCYTES (test code = 1067) 2.59 K/UL 1.00-4.00 ABSOLUTE MONOCYTES (test code = 1068) 0.52 K/UL 0.20-1.00 ABSOLUTE EOSINOPHILS (test code = 1040) 0.13 K/UL 0.00-0.50 ABSOLUTE BASOPHILS (test code = 1069) 0.03 K/UL 0.00-0.20 ABS IMMATURE GRANULOCYTES (test code = 1020) 0.01 K/UL 0.00-0.10 ABS NUCLEATED RBCS (test code = 26545) 0.00 K/UL 0.00-0.11 CBC W/AUTO [id number] 00:00:00* Test Item Value Reference Range Interpretation Comme nts WBC (test code = 1001) 6.6 K/UL RBC (test code = 1002) 4.21 M/UL HEMOGLOBIN (test code = 1003) 14.0 G/DL HEMATOCRIT (test code = 1004) 40.2 % MCV (test code = 1005) 95.5 fL MCH (test code = 1006) 33.3 PG MCHC (test code = 1007) 34.8 G/DL RDW (test code = 1038) 12.1 % NEUTROPHILS (test code = 1008) 50.3 % LYMPHOCYTES (test code = 1010) 39.1 % MONOCYTES (test code = 1011) 7.9 % EOSINOPHILS (test code = 1012) 2.0 % BASOPHILS (test code = 1013) 0.5 % IMMATURE GRANULOCYTES (test code = 1036) 0.2 % NUCLEATED RBCS (test code = 1065) 0.0 /100WBC'S PLATELET COUNT (test code = 1015) 230 K/UL ABSOLUTE NEUTROPHILS (test c ode = 1066) 3.34 K/UL ABSOLUTE LYMPHOCYTES (test c ode = 1067) 2.59 K/UL ABSOLUTE MONOCYTES (test cod e = 1068) 0.52 K/UL ABSOLUTE EOSINOPHILS (test c ode = 1040) 0.13 K/UL ABSOLUTE BASOPHILS (test cod e = 1069) 0.03 K/UL ABS IMMATURE GRANULOCYTES (t est code = 1020) 0.01 K/UL ABS NUCLEATED RBCS (test cod e = 52948) 0.00 K/UL [id number] 00:00:00* Test Item Value Reference Range Interpretation Comme nts D-DIMER (test code = 1405) 0.41 UG/MLFEU PAP TEST, THINPREP, [id number] 00:00:00* Test Item Value Reference Range Interpretation Comme nts SOURCE: (test code = 8001) Cervical/Endocervical SLIDES: (test code = 8011) 1 LMP: (test code = 8021) MENOPAUSE SPECIMEN ADEQUACY: (test code = 47257) (NOTE) INTERPRETATION: (test code = 83486) NILM/NO EPITH. ABNORMALITY;SEE BELOW CUSTOMER ACCOUNT EXECUTIVE: (test code = 8101) KERRIE FIGUEROA,ME(ASCP) QC TECHNOLOGIST: (test code = 8111) ANGELA VANCEME(ASCP) LOCATION: (test code = 24182) (NOTE) CPT: (test code = 8140) (NOTE) PAP TEST, THINPREP, [id number] 00:00:00* Test Item Value Reference Range Interpretation Comme nts SOURCE: (test code = 8001) Cervical/Endocervical SLIDES: (test code = 8011) 1 LMP: (test code = 8021) MENOPAUSE SPECIMEN ADEQUACY: (test code = 28104) (NOTE) INTERPRETATION: (test code = 63280) NILM/NO EPITH. ABNORMALITY;SEE BELOW CUSTOMER ACCOUNT EXECUTIVE: (test code = 8101) KERRIE FIGUEROA,RIKI(ASCP) QC TECHNOLOGIST: (test code = 8111) ANGELA VANCEME(ASCP) LOCATION: (test code = 36242) (NOTE) CPT: (test code = 8140) (NOTE) GC AND CHLAMYDIA AMPLIFIED, [id number] 00:00:00* Test Item Value Reference Range Interpretation Comme nts GONORRHEA, TMA (test code = 55116) NEGATIVE CHLAMYDIA, TMA (test code = 43417) NEGATIVE HIV AB/AG COMBO RFLX [id number] 00:00:00* Test Item Value Reference Range Interpretation Comme nts HIV 1/2 4TH GEN, RFLX CONF ( test code = 3514) NON-REACTIVE [id number] 00:00:00* Test Item Value Reference Range Interpretation Comme nts RPR RESULT (test code = 3501) NON-REACTIVE RPR TITER (test code = 3500) NOT INDIC. TITER HEPATITIS PROFILE (A,B,C)2020-11-02 00:00:00* Test Item Value Reference Range Interpretation Comme nts HEPATITIS A TOTAL AB (test c ode = 2725) REACTIVE HEPATITIS B SURF AG (test co de = 2739) NON-REACTIVE HEP B CORE TOTAL AB (test co de = 2729) REACTIVE HEPATITIS B SURFACE AB (test code = 2737) REACTIVE HEPATITIS C ANTIBODY (test c ode = 4670) REACTIVE INTERPRETATION HEPATITIS A: (test code = 2552) (NOTE) INTERPRETATION HEPATITIS B: (test code = 15659) (NOTE) INTERPRETATION HEPATITIS C: (test code = 28983) (NOTE) VAGINAL PATHOGENS DNA [id number] 00:00:00* Test Item Value Reference Range Interpretation Comme nts JERALD SPECIES (test code = ) NEGATIVE G. VAGINALIS (test code = ) NEGATIVE T. VAGINALIS (test code = ) NEGATIVE GC AND CHLAMYDIA AMPLIFIED, [id number] 00:00:00* Test Item Value Reference Range Interpretation Comme nts GONORRHEA, TMA (test code = 66808) NEGATIVE CHLAMYDIA, TMA (test code = 52229) NEGATIVE CBC W/AUTO [id number] 00:00:00* Test Item Value Reference Range Interpretation Comme nts WBC (test code = 1001) 6.1 K/UL RBC (test code = 1002) 4.13 M/UL HEMOGLOBIN (test code = 1003) 13.6 G/DL HEMATOCRIT (test code = 1004) 39.7 % MCV (test code = 1005) 96.1 fL MCH (test code = 1006) 32.9 PG MCHC (test code = 1007) 34.3 G/DL RDW (test code = 1038) 12.1 % NEUTROPHILS (test code = 1008) 60.2 % LYMPHOCYTES (test code = 1010) 31.2 % MONOCYTES (test code = 1011) 6.9 % EOSINOPHILS (test code = 1012) 1.2 % BASOPHILS (test code = 1013) 0.5 % PLATELET COUNT (test code = 1015) 251 K/UL LIPID [id number] 00:00:00* Test Item Value Reference Range Interpretation Comme nts CHOLESTEROL (test code = 2210) 177 MG/DL TRIGLYCERIDES (test code = 2232) 64 MG/DL HDL CHOLESTEROL (test code = 2220) 90 MG/DL CALC LDL CHOL (test code = 2237) 73 MG/DL RISK RATIO LDL/HDL (test cod e = 2238) 0.81 RATIO COMPREHENSIVE METABOLIC [id number] 00:00:00* Test Item Value Reference Range Interpretation Comme nts GLUCOSE (test code = 2217) 120 MG/DL BUN (test code = 2208) 15 MG/DL CREATININE (test code = 2214) 0.72 MG/DL eGFR AMER. (test cod e = 55686) 103 ML/MIN/1.73 eGFR NON- AMER. (test code = 84527) 89 ML/MIN/1.73 CALC BUN/CREAT (test code = 2235) 21 RATIO SODIUM (test code = 2231) 141 MEQ/L POTASSIUM (test code = 2228) 4.3 MEQ/L CHLORIDE (test code = 2215) 102 MEQ/L CARBON DIOXIDE (test code = 2206) 24 MEQ/L CALCIUM (test code = 2209) 10.2 MG/DL PROTEIN, TOTAL (test code = 2229) 7.9 G/DL ALBUMIN (test code = 2201) 4.9 G/DL CALC GLOBULIN (test code = 2240) 3.0 G/DL CALC A/G RATIO (test code = 2234) 1.6 RATIO BILIRUBIN, TOTAL (test code = 2207) 0.5 MG/DL ALKALINE PHOSPHATASE (test code = 2204) 59 U/L AST (test code = 2218) 35 U/L ALT (test code = 2219) 32 U/L HEPATITIS A IgM [REFLEX]2020-11-02 00:00:00* Test Item Value Reference Range Interpretation Comme [facility] HEPATITIS A IgM (test code = 2728) NON-REACTIVE HIV AB/AG COMBO RFLX [id number] 00:00:00* Test Item Value Reference Range Interpretation Comme [facility] HIV 1/2 4TH GEN, RFLX CONF ( test code = 3514) NON-REACTIVE [id number] 00:00:00* Test Item Value Reference Range Interpretation Comme nts RPR RESULT (test code = 3501) NON-REACTIVE RPR TITER (test code = 3500) NOT INDIC. TITER HEPATITIS PROFILE (A,B,C)2020-11-02 00:00:00* Test Item Value Reference Range Interpretation Comme [facility] HEPATITIS A TOTAL AB (test c ode = 2725) REACTIVE HEPATITIS B SURF AG (test co de = 2739) NON-REACTIVE HEP B CORE TOTAL AB (test co de = 2729) REACTIVE HEPATITIS B SURFACE AB (test code = 2737) REACTIVE HEPATITIS C ANTIBODY (test c ode = 4675) REACTIVE INTERPRETATION HEPATITIS A: (test code = 2552) (NOTE) INTERPRETATION HEPATITIS B: (test code = 25114) (NOTE) INTERPRETATION HEPATITIS C: (test code = 72782) (NOTE) VAGINAL PATHOGENS DNA [id number] 00:00:00* Test Item Value Reference Range Interpretation Comme nts JERALD SPECIES (test code = ) NEGATIVE G. VAGINALIS (test code = ) NEGATIVE T. VAGINALIS (test code = ) NEGATIVE CBC W/AUTO [id number] 00:00:00* Test Item Value Reference Range Interpretation Comme nts WBC (test code = 1001) 6.1 K/UL RBC (test code = 1002) 4.13 M/UL HEMOGLOBIN (test code = 1003) 13.6 G/DL HEMATOCRIT (test code = 1004) 39.7 % MCV (test code = 1005) 96.1 fL MCH (test code = 1006) 32.9 PG MCHC (test code = 1007) 34.3 G/DL RDW (test code = 1038) 12.1 % NEUTROPHILS (test code = 1008) 60.2 % LYMPHOCYTES (test code = 1010) 31.2 % MONOCYTES (test code = 1011) 6.9 % EOSINOPHILS (test code = 1012) 1.2 % BASOPHILS (test code = 1013) 0.5 % PLATELET COUNT (test code = 1015) 251 K/UL LIPID [id number] 00:00:00* Test Item Value Reference Range Interpretation Comme nts CHOLESTEROL (test code = 2210) 177 MG/DL TRIGLYCERIDES (test code = 2232) 64 MG/DL HDL CHOLESTEROL (test code = 2220) 90 MG/DL CALC LDL CHOL (test code = 2237) 73 MG/DL RISK RATIO LDL/HDL (test cod e = 2238) 0.81 RATIO COMPREHENSIVE METABOLIC [id number] 00:00:00* Test Item Value Reference Range Interpretation Comme nts GLUCOSE (test code = 2217) 120 MG/DL BUN (test code = 2208) 15 MG/DL CREATININE (test code = 2214) 0.72 MG/DL eGFR AMER. (test cod e = 03758) 103 ML/MIN/1.73 eGFR NON- AMER. (test code = 48330) 89 ML/MIN/1.73 CALC BUN/CREAT (test code = 2235) 21 RATIO SODIUM (test code = 223) 141 MEQ/L POTASSIUM (test code = 2228) 4.3 MEQ/L CHLORIDE (test code = 2215) 102 MEQ/L CARBON DIOXIDE (test code = 2206) 24 MEQ/L CALCIUM (test code = 2209) 10.2 MG/DL PROTEIN, TOTAL (test code = 222) 7.9 G/DL ALBUMIN (test code = 2201) 4.9 G/DL CALC GLOBULIN (test code = 2240) 3.0 G/DL CALC A/G RATIO (test code = 2234) 1.6 RATIO BILIRUBIN, TOTAL (test code = 2207) 0.5 MG/DL ALKALINE PHOSPHATASE (test code = 4) 59 U/L AST (test code = 2217) 35 U/L ALT (test code = 2218) 32 U/L HEPATITIS A IgM [REFLEX]2020-11-02 00:00:00* Test Item Value Reference Range Interpretation Comme [facility] HEPATITIS A IgM (test code = 2728) NON-REACTIVE HPV HIGH RISK WITH GENOTYPE, [id number] 00:00:00* Test Item Value Reference Range Interpretation Comme [facility] HPV HIGH RISK INTERP (test c ode = 29072) POSITIVE HPV 16 (test code = 59366) NEGATIVE HPV 18 (test code = 66747) NEGATIVE HPV, HR, OTHER GENOTYPES (te st code = 01416) POSITIVE HPV HIGH RISK WITH GENOTYPE, [id number] 00:00:00* Test Item Value Reference Range Interpretation Comme [facility] HPV HIGH RISK INTERP (test c ode = 39562) POSITIVE HPV 16 (test code = 85860) NEGATIVE HPV 18 (test code = 68841) NEGATIVE HPV, HR, OTHER GENOTYPES (te st code = 96431) POSITIVE CULTURE, [id number] 00:00:00* Test Item Value Reference Range Interpretation Comme [facility] CULTURE, URINE (test code = 97960) SPECIMEN NUMBER: [id number] CULTURE, [id number] 00:00:00* Test Item Value Reference Range Interpretation Comme [facility] CULTURE, URINE (test code = 39428) SPECIMEN NUMBER: [id number] HCV RNA, PCR QUANT [ADDED]2019-04-27 00:00:00* Test Item Value Reference Range Interpretation Comme nts HCV RNA, PCR QUANT (test cod e = 4571) [id number] IU/ML HCV VIRAL LOG (test code = 66240) 6.431 LOGIU/ML NOTE: [ADDED]2019-04-27 00:00:00* Test Item Value Reference Range Interpretation Comme nts NOTE: (test code = 998) (NOTE) HCV RNA, PCR QUANT [ADDED]2019-04-27 00:00:00* Test Item Value Reference Range Interpretation Comme nts HCV RNA, PCR QUANT (test cod e = 4571) [id number] IU/ML HCV VIRAL LOG (test code = 25980) 6.431 LOGIU/ML NOTE: [ADDED]2019-04-27 00:00:00* Test Item Value Reference Range Interpretation Comme nts NOTE: (test code = 998) (NOTE) HEPATITIS C [id number] 00:00:00* Test Item Value Reference Range Interpretation Comme [facility] HEPATITIS C ANTIBODY (test code = 4675) TEST NOT PERFORMED HCV INDEX (test code = 16578) TEST NOT PERFORMED HEPATITIS C [id number] 00:00:00* Test Item Value Reference Range Interpretation Comme nts HEPATITIS C ANTIBODY (test code = 4675) TEST NOT PERFORMED HCV INDEX (test code = 90195) TEST NOT PERFORMED CBC W/AUTO [id number] 00:00:00* Test Item Value Reference Range Interpretation Comme nts WBC (test code = 1001) 6.2 K/UL RBC (test code = 1002) 4.08 M/UL HEMOGLOBIN (test code = 1003) 13.5 G/DL HEMATOCRIT (test code = 1004) 38.9 % MCV (test code = 1005) 95.3 fL MCH (test code = 1006) 33.1 PG MCHC (test code = 1007) 34.7 G/DL RDW (test code = 1038) 11.8 % NEUTROPHILS (test code = 1008) (NOTE) % PLATELET COUNT (test code = 1015) 253 K/UL LIPID [id number] 00:00:00* Test Item Value Reference Range Interpretation Comme nts CHOLESTEROL (test code = 2210) 165 MG/DL TRIGLYCERIDES (test code = 2232) 101 MG/DL HDL CHOLESTEROL (test code = 2220) 67 MG/DL CALC LDL CHOL (test code = 2237) 78 MG/DL RISK RATIO LDL/HDL (test cod e = 2238) 1.16 RATIO CBC W/AUTO [id number] 00:00:00* Test Item Value Reference Range Interpretation Comme nts WBC (test code = 1001) 6.2 K/UL RBC (test code = 1002) 4.08 M/UL HEMOGLOBIN (test code = 1003) 13.5 G/DL HEMATOCRIT (test code = 1004) 38.9 % MCV (test code = 1005) 95.3 fL MCH (test code = 1006) 33.1 PG MCHC (test code = 1007) 34.7 G/DL RDW (test code = 1038) 11.8 % NEUTROPHILS (test code = 1008) (NOTE) % PLATELET COUNT (test code = 1015) 253 K/UL COMPREHENSIVE METABOLIC [id number] 00:00:00* Test Item Value Reference Range Interpretation Comme nts GLUCOSE (test code = 2217) 127 MG/DL BUN (test code = 2208) 19 MG/DL CREATININE (test code = 2214) 0.83 MG/DL eGFR AMER. (test cod e = 51956) 88 ML/MIN/1.73 eGFR NON- AMER. (test code = 70433) 76 ML/MIN/1.73 CALC BUN/CREAT (test code = 2235) 23 RATIO SODIUM (test code = 2231) 136 MEQ/L POTASSIUM (test code = 2228) 4.7 MEQ/L CHLORIDE (test code = 2215) 98 MEQ/L CARBON DIOXIDE (test code = 2206) 25 MEQ/L CALCIUM (test code = 2209) 10.1 MG/DL PROTEIN, TOTAL (test code = 2229) 7.5 G/DL ALBUMIN (test code = 2201) 4.7 G/DL CALC GLOBULIN (test code = 2240) 2.8 G/DL CALC A/G RATIO (test code = 2234) 1.7 RATIO BILIRUBIN, TOTAL (test code = 2207) 0.3 MG/DL ALKALINE PHOSPHATASE (test code = 2204) 57 U/L AST (test code = 2218) 38 U/L ALT (test code = 2219) 39 U/L LIPID [id number] 00:00:00* Test Item Value Reference Range Interpretation Comme nts CHOLESTEROL (test code = 2210) 165 MG/DL TRIGLYCERIDES (test code = 2232) 101 MG/DL HDL CHOLESTEROL (test code = 2220) 67 MG/DL CALC LDL CHOL (test code = 2237) 78 MG/DL RISK RATIO LDL/HDL (test cod e = 2238) 1.16 RATIO COMPREHENSIVE METABOLIC [id number] 00:00:00* Test Item Value Reference Range Interpretation Comme nts GLUCOSE (test code = 2217) 127 MG/DL BUN (test code = 2208) 19 MG/DL CREATININE (test code = 2214) 0.83 MG/DL eGFR AMER. (test cod e = 33001) 88 ML/MIN/1.73 eGFR NON- AMER. (test code = 43003) 76 ML/MIN/1.73 CALC BUN/CREAT (test code = 2235) 23 RATIO SODIUM (test code = 2231) 136 MEQ/L POTASSIUM (test code = 2228) 4.7 MEQ/L CHLORIDE (test code = 2215) 98 MEQ/L CARBON DIOXIDE (test code = 2206) 25 MEQ/L CALCIUM (test code = 2209) 10.1 MG/DL PROTEIN, TOTAL (test code = 2229) 7.5 G/DL ALBUMIN (test code = 2201) 4.7 G/DL CALC GLOBULIN (test code = 2240) 2.8 G/DL CALC A/G RATIO (test code = 2234) 1.7 RATIO BILIRUBIN, TOTAL (test code = 2207) 0.3 MG/DL ALKALINE PHOSPHATASE (test code = 2204) 57 U/L AST (test code = 2218) 38 U/L ALT (test code = 2219) 39 U/L PAP TEST, THINPREP, [id number] 00:00:00* Test Item Value Reference Range Interpretation Comme nts SOURCE: (test code = 8001) Cervical/Endocervical SLIDES: (test code = 8011) 1 LMP: (test code = 8021) SEE NOTE SPECIMEN ADEQUACY: (test code = 07499) (NOTE) INTERPRETATION: (test code = 64578) NILM/NO EPITH. ABNORMALITY;SEE BELOW CUSTOMER ACCOUNT EXECUTIVE: (test code = 8101) RIKI Nava(ASCP)IAC QC TECHNOLOGIST: (test code = 8111) ANGELA VANCE,CT(ASCP) LOCATION: (test code = 29254) (NOTE) CPT: (test code = 8140) (NOTE) PAP TEST, THINPREP, [id number] 00:00:00* Test Item Value Reference Range Interpretation Comme nts SOURCE: (test code = 8001) Cervical/Endocervical SLIDES: (test code = 8011) 1 LMP: (test code = 8021) SEE NOTE SPECIMEN ADEQUACY: (test code = 09709) (NOTE) INTERPRETATION: (test code = 32180) NILM/NO EPITH. ABNORMALITY;SEE BELOW CUSTOMER ACCOUNT EXECUTIVE: (test code = 8101) RIKI Nava(ASCP)[facility] QC TECHNOLOGIST: (test code = 8111) ANGELA VANCECT(ASCP) LOCATION: (test code = 13498) (NOTE) CPT: (test code = 8140) (NOTE) HPV HIGH RISK WITH GENOTYPE, [id number] 00:00:00* Test Item Value Reference Range Interpretation Comme [facility] HPV HIGH RISK INTERP (test c ode = 74138) POSITIVE HPV 16 (test code = 58992) NEGATIVE HPV 18 (test code = 87681) NEGATIVE HPV, HR, OTHER GENOTYPES (te st code = 63541) POSITIVE HPV HIGH RISK WITH GENOTYPE, [id number] 00:00:00* Test Item Value Reference Range Interpretation Comme nts HPV HIGH RISK INTERP (test c ode = 87039) POSITIVE HPV 16 (test code = 55258) NEGATIVE HPV 18 (test code = 38770) NEGATIVE HPV, HR, OTHER GENOTYPES (te st code = 11777) POSITIVE HEMOGLOBIN [id number] 00:00:00* Test Item Value Reference Range Interpretation Comme nts HEMOGLOBIN A1c (test code = 99593) 5.3 % LIPID [id number] 00:00:00* Test Item Value Reference Range Interpretation Comme nts CHOLESTEROL (test code = 2210) 191 MG/DL TRIGLYCERIDES (test code = 2232) 68 MG/DL HDL CHOLESTEROL (test code = 2220) 91 MG/DL CALC LDL CHOL (test code = 2237) 86 MG/DL RISK RATIO LDL/HDL (test cod e = 2238) 0.95 RATIO COMPREHENSIVE METABOLIC [id number] 00:00:00* Test Item Value Reference Range Interpretation Comme nts GLUCOSE (test code = 2217) 111 MG/DL BUN (test code = 2208) 14 MG/DL CREATININE (test code = 2214) 0.63 MG/DL eGFR AMER. (test cod e = 05197) 113 ML/MIN/1.73 eGFR NON- AMER. (test code = 38434) 97 ML/MIN/1.73 CALC BUN/CREAT (test code = 2235) 22 RATIO SODIUM (test code = 2231) 140 MEQ/L POTASSIUM (test code = 2228) 4.5 MEQ/L CHLORIDE (test code = 2215) 101 MEQ/L CARBON DIOXIDE (test code = 2206) 27 MEQ/L CALCIUM (test code = 2209) 9.7 MG/DL PROTEIN, TOTAL (test code = 2229) 8.2 G/DL ALBUMIN (test code = 2201) 5.0 G/DL CALC GLOBULIN (test code = 2240) 3.2 G/DL CALC A/G RATIO (test code = 2234) 1.6 RATIO BILIRUBIN, TOTAL (test code = 2207) 0.5 MG/DL ALKALINE PHOSPHATASE (test code = 2204) 70 U/L AST (test code = 2218) 48 U/L ALT (test code = 2219) 51 U/L [id number] 00:00:00* Test Item Value Reference Range Interpretation Comme [facility] TSH, THIRD GENERATION (test code = 2821) 0.907 UIU/ML ACUTE HEPATITIS [id number] 00:00:00* Test Item Value Reference Range Interpretation Comme nts HEPATITIS A IgM (test code = 74601) NON-REACTIVE HEPATITIS B CORE IgM (test c ode = 4644) NON-REACTIVE HEPATITIS B SURF AG (test co de = 2739) NON-REACTIVE HEPATITIS C ANTIBODY (test c ode = 4672) REACTIVE INTERPRETATION HEPATITIS A: (test code = 2552) (NOTE) INTERPRETATION HEPATITIS B: (test code = 95272) (NOTE) INTERPRETATION HEPATITIS C: (test code = 86278) (NOTE) HEMOGLOBIN [id number] 00:00:00* Test Item Value Reference Range Interpretation Comme nts HEMOGLOBIN A1c (test code = 18576) 5.3 % LIPID [id number] 00:00:00* Test Item Value Reference Range Interpretation Comme nts CHOLESTEROL (test code = 2210) 191 MG/DL TRIGLYCERIDES (test code = 2232) 68 MG/DL HDL CHOLESTEROL (test code = 2220) 91 MG/DL CALC LDL CHOL (test code = 2237) 86 MG/DL RISK RATIO LDL/HDL (test cod e = 2238) 0.95 RATIO COMPREHENSIVE METABOLIC [id number] 00:00:00* Test Item Value Reference Range Interpretation Comme nts GLUCOSE (test code = 2217) 111 MG/DL BUN (test code = 2208) 14 MG/DL CREATININE (test code = 2214) 0.63 MG/DL eGFR AMER. (test cod e = 17761) 113 ML/MIN/1.73 eGFR NON- AMER. (test code = 26234) 97 ML/MIN/1.73 CALC BUN/CREAT (test code = 2235) 22 RATIO SODIUM (test code = 2231) 140 MEQ/L POTASSIUM (test code = 2228) 4.5 MEQ/L CHLORIDE (test code = 2215) 101 MEQ/L CARBON DIOXIDE (test code = 2206) 27 MEQ/L CALCIUM (test code = 2209) 9.7 MG/DL PROTEIN, TOTAL (test code = 2229) 8.2 G/DL ALBUMIN (test code = 2201) 5.0 G/DL CALC GLOBULIN (test code = 2240) 3.2 G/DL CALC A/G RATIO (test code = 2234) 1.6 RATIO BILIRUBIN, TOTAL (test code = 2207) 0.5 MG/DL ALKALINE PHOSPHATASE (test code = 2204) 70 U/L AST (test code = 2218) 48 U/L ALT (test code = 2219) 51 U/L [id number] 00:00:00* Test Item Value Reference Range Interpretation Comme nts TSH, THIRD GENERATION (test code = 2821) 0.907 UIU/ML ACUTE HEPATITIS [id number] 00:00:00* Test Item Value Reference Range Interpretation Comme nts HEPATITIS A IgM (test code = 61166) NON-REACTIVE HEPATITIS B CORE IgM (test c ode = 4054) NON-REACTIVE HEPATITIS B SURF AG (test co de = 6238) NON-REACTIVE HEPATITIS C ANTIBODY (test c ode = 3328) REACTIVE INTERPRETATION HEPATITIS A: (test code = 2552) (NOTE) INTERPRETATION HEPATITIS B: (test code = 47862) (NOTE) INTERPRETATION HEPATITIS C: (test code = 41688) (NOTE)
--- NOTE | 2024-06-29 18:33 | EDPHYS ---
Physician Documentation [facility] Name: Miya Winchester Age: 68 yrs Sex: Female : 1955 Arrival Date: 06/29/2024 Time: 18:04 Bed IW2 Private MD: Mariana Syed ED Physician Estrella Barajas HPI: 06/29 20:23 This 68 yrs old Female presents to ER via Ambulatory with complaints of Rash - poison kb sumac. 20:23 PT is a 68 year old female who presents for rash that started one week ago. States she kb was doing yard work at her brother's house and got into poison sumac. Was given a prescription for a medrol dosepak by another provider, but came in for a shot because it works better for her. Denies shortness of breath. . Historical: - Allergies: 18:53 Codeine; jb4 - PMHx: 18:53 Degenerative disc disease; jb4 - PSHx: 18:53 right ear (Degenerative disc disease); jb4 - Immunization history:: Adult Immunizations up to date. - Infectious Disease History:: Denies. - Social history:: Smoking status: Patient reports the use of cigarette tobacco products, denies chronic smoking, but will smoke occasionally. ROS: 20:23 Constitutional: As per HPI kb Exam: 20:23 Constitutional: This is a well developed, well nourished patient who is awake, alert, kb and in no acute distress. Head/Face: Normocephalic, atraumatic. ENT: Moist Mucous membranes Cardiovascular: Regular rate Respiratory: Respirations even and unlabored. No increased work of breathing. Talking in full sentences MS/ Extremity: Pulses equal, no cyanosis. Neurovascular intact. Full, normal range of motion. Neuro: Awake and alert, GCS 15, oriented to person, place, time, and situation. 20:23 Skin: rash a moderate rash is noted, consistent with contact dermatitis, on the back, chest, right arm and left arm, Vital Signs: 18:51 Pulse 83; Resp 16; Temp 98.7(O); Pulse Ox 100% on R/A; Weight 70.31 kg (R); Height 5 jb4 ft. 9 in. (R); 18:51 Body Mass Index 22.89 (70.31 kg, 175.26 cm) jb4 MDM: 18:10 Medical Screening Exam initiated kb 20:23 Data reviewed: vital signs, nurses notes. kb 20:25 Differential diagnosis: impetigo, allergic reaction, parasite infection. Counseling: I kb had a detailed discussion with the patient and/or guardian regarding the historical points, exam findings, and any diagnostic results supporting the discharge/admit diagnosis, the need for outpatient follow up, a family practitioner, to return to the emergency department if symptoms worsen or persist or if there are any questions or concerns that arise at home. Administered Medications: 19:02 Drug: Famotidine PO 20 mg PO once Route: PO; jb4 19:07 Follow up: Response: Medication administered at discharge. jb4 19:02 Drug: Dexamethasone IM 10 mg IM once Route: IM; Site: right deltoid; jb4 19:08 Follow up: Response: Medication administered at discharge. jb4 Disposition Summary: 06/29/24 18:33 Discharge Ordered Notes: Location: Home kb Condition: Stable kb Diagnosis - Allergic contact dermatitis due to plants, except food kb Followup: kb - With: Emergency Department - When: As needed - Reason: Worsening of condition Followup: kb - With: Private Physician - When: 2 - 3 days - Reason: Recheck today's complaints, Continuance of care, Re-evaluation by your physician Discharge Instructions: - Discharge Summary Sheet kb - Poison Hazel Dermatitis, [id number] kb - Contact Dermatitis, [id number] kb Forms: - Medication Reconciliation Form kb - Antibiotic Education kb - Prescription Opioid Use kb - Patient Portal Instructions kb - Leadership Thank You Letter kb Signatures: Valeri Torres FNP-C FNP-Inderjit Torres, RN RN jb4
[2024-06-29] MEDS ORDERED: dexAMETHasone 10 MG/ML VIAL ONE (18:56)
[2024-06-29] MEDS ORDERED: FAMOTIDINE 20 MG TAB ONE (18:56)
--- NOTE | 2024-06-29 19:08 | ER ---
Nurse's Notes [facility] Name: Miya Winchester Age: 68 yrs Sex: Female : 1955 Arrival Date: 06/29/2024 Time: 18:04 Bed IW2 Private MD: Mariana Syed Diagnosis: Allergic contact dermatitis due to plants, except food Presentation: 06/29 18:51 Chief complaint: Patient states: I was helping my brother cut some smaller trees and I jb4 got into something that I think was poison sumac. The rash is spreading over my body. Coronavirus screen: At this time, the client does not indicate any symptoms associated with coronavirus-19. Ebola Screen: No symptoms or risks identified at this time. Initial Sepsis Screen: Does the patient meet any 2 criteria? No. Patient's initial sepsis screen is negative. Does the patient have a suspected source of infection? No. Patient's initial sepsis screen is negative. Risk Assessment: Do you want to hurt yourself or someone else? Patient reports no desire to harm self or others. Onset of symptoms was June 29, 2024. Transition of care: patient was not received from another setting of care. 18:51 Method Of Arrival: Ambulatory jb4 18:51 Acuity: SERGE 4 jb4 Triage Assessment: 18:53 General: Appears in no apparent distress. comfortable, Behavior is calm, cooperative, jb4 appropriate for age. Pain: Complains of pain in back, chest, right arm and left arm Pain does not radiate. Pain currently is 8 out of 10 on a pain scale. Quality of pain is described as itching. Neuro: Level of Consciousness is awake, alert, obeys commands, Oriented to person, place, time, situation. Cardiovascular: Patient's skin is warm and dry. Respiratory: Airway is patent Respiratory effort is even, unlabored, Respiratory pattern is regular, symmetrical. Derm: Skin is intact, Skin is pink, warm \T\ dry. Rash noted that is urticaria, on back, chest, right arm and left arm. Historical: - Allergies: 18:53 Codeine; jb4 - PMHx: 18:53 Degenerative disc disease; jb4 - PSHx: 18:53 right ear (Degenerative disc disease); jb4 - Immunization history:: Adult Immunizations up to date. - Infectious Disease History:: Denies. - Social history:: Smoking status: Patient reports the use of cigarette tobacco products, denies chronic smoking, but will smoke occasionally. Screenin:05 [facility] ED Fall Risk Assessment (Adult) History of falling in the last 3 months, jb4 including since admission No falls in past 3 months (0 pts) Confusion or Disorientation No (0 pts) Intoxicated or Sedated No (0 pts) Impaired Gait No (0 pts) Mobility Assist Device Used No (0 pt) Altered Elimination No (0 pt) Score/Fall Risk Level 0 - 2 = Low Risk Oriented to surroundings, Maintained a safe environment. Abuse screen: Denies threats or abuse. Nutritional screening: No deficits noted. Tuberculosis screening: No symptoms or risk factors identified. Vital Signs: 18:51 Pulse 83; Resp 16; Temp 98.7(O); Pulse Ox 100% on R/A; Weight 70.31 kg (R); Height 5 jb4 ft. 9 in. (R); 18:51 Body Mass Index 22.89 (70.31 kg, 175.26 cm) jb4 ED Course: 18:07 Patient arrived in ED. as 18:10 [facility] kb 18:10 Estrella Barajas MD is Attending Physician. kb 18:28 Mariana Syed is Private Physician. as 18:53 Triage completed. jb4 18:53 Arm band placed on right wrist. jb4 19:05 Patient has correct armband on for positive identification. Bed in low position. Call jb4 light in reach. Side rails up X 1. Provided Education on: DISCHARGE INSTRUCTIONS.. 19:05 No provider procedures requiring assistance completed. Patient did not have IV access jb4 during this emergency room visit. Administered Medications: 19:02 Drug: Famotidine PO 20 mg PO once Route: PO; jb4 19:07 Follow up: Response: Medication administered at discharge. jb4 19:02 Drug: Dexamethasone IM 10 mg IM once Route: IM; Site: right deltoid; jb4 19:08 Follow up: Response: Medication administered at discharge. jb4 Outcome: 18:33 Discharge ordered by . kb 19:05 Discharged to home ambulatory, jb4 19:05 Condition: stable 19:05 Discharge instructions given to patient, Instructed on discharge instructions, follow up and referral plans. Demonstrated understanding of instructions, follow-up care, 19:08 Patient left the ED. jb4 Signatures: Valeri Torres, KERRY-C [employer]EDER-Carolyn Freeman James, RN RN jb4
[2024-06-29 19:48] VITALS: TEMP 98.7; O2SAT 100
== END 2024-06-29 19:08 | disposition home or self-care (01) ==
LOC: ER 18:04
DX: L23.7 Allergic contact dermatitis due to plants, except food (principal); F17.210 Nicotine dependence, cigarettes, uncomplicated
CPT/HCPCS: 96372; 99284; J1100